=== PATIENT | female | born 1985 | race Caucasian/White ===

== ENCOUNTER 2025-05-04 15:24 | Emergency (ER) | payer SELFPAY ==
[2025-05-04] MEDS ORDERED: Dexamethasone 10 MG/ML VIAL ONE (16:31)
[2025-05-04] MEDS ORDERED: Famotidine 20 MG TAB ONE (16:31)
[2025-05-04] MEDS ORDERED: diphenhydrAMINE 25 MG CAP ONE (16:53)
== END 2025-05-04 18:47 | disposition home or self-care (01) ==
LOC: ERS 15:24
DX: L50.0 Allergic urticaria (principal)
CPT/HCPCS: 99282; J1100